=== PATIENT | male | born 1990 | race Caucasian/White ===

== ENCOUNTER → 2016-08-23 | Outpatient (CLI) | payer OTHER ==
--- NOTE | 2016-08-23 11:44 | REP ---
Right rib series: Five views including PA chest: History: Contusion. Findings: PA chest radiograph is normal. There is no evidence of pneumothorax or mediastinal widening. No hydrothorax is seen. Heart size is normal. Multiple views of the right rib cage are obtained. These show no evidence of rib fracture or bony destructive lesion. Impression: Negative right wrist series. Signed by Chano Bridges MD 08/23/2016 08:11 P
== END ==
LOC: M WUC 10:57
PROVIDERS: ATTEND Physician Assistant
DX: S20.211A Contusion of right front wall of thorax, initial encounter (principal); X58.XXXA Exposure to other specified factors, initial encounter; Y92.89 Other specified places as the place of occurrence of the external cause; Y93.89 Activity, other specified; Y99.8 Other external cause status